=== PATIENT | male | born 1995 | race Caucasian/White ===

== ENCOUNTER 2025-02-14 07:47 | Outpatient (AMB) | payer BC, SELFPAY ==
--- OUTSIDE RECORDS SUMMARY | 2025-02-14 07:50 | XMS_ITS | Clinical Summary ---
Author Organization [facility] Address [address] [place] [phone] Phone Care Team Providers Care Vocational Rehabilitation Specialist Name Role Phone Maury Mendoza MD Primary Care Provider [phone] Allergies No known active allergies Medications No known medications Active Problems Problem Noted Date Diagnosed Date Elevated blood pressure reading 04/20/2019 Overview (04/20/2019): - BP 140/80 x 2 measurements in office - Father and 25 yo brother with diagnosed hypertension - Patient admittedly nervous during visit Assessment & Plan (04/20/2019 3:13 PM EDT): Parag agrees to get an outside BP done and follow up with [facility] if abnormal Immunizations Immunization Administration Dates Next Due DTaP 06/01/2001, 8,1996,06/15,1996 Hep B, ped/adol 1996,1996,1996 Hib (HbOC) 07/06/1997, 7,1996,04/21 IPV 06/01/2001 Influenza, injectable, quadr ivalent, preservative free 04/20/2019 Influenza, intranasal, trivalent 06/03/2010,09/2008 MMR 06/01/2001,07/06/1997 Meningococcal Conj (Menactra) MCV4P 03/13/2015,1 OPV 1996,1996 Tdap 04/20/2019,04/04/2009 Varicella 05/07/2009,02/26/1999 Family History Medical History Relation Name Comments Hypertension Brother Hypertension Father Relation Name Status Comments Brother Father Social History Tobacco Use Types Packs/Day Years Used Date Smoking Tobacco: Never Comments:never smoker Hunger/Food Answer Date Recorded No 04/27/2020 Stable Housing Answer Date Recorded No 04/27/2020 Transportation Concerns Answer Date Rec orded No 04/27/2020 Hazards in Home Answer Date Recorded No 06/15/2020 Financing Utilities Answer Date Recorde d No 06/15/2020 Safety at Home Answer Date Recorded No 06/15/2020 Outside Support Answer Date Recorded No 06/15/2020 Understanding Health Concerns Answer Da te Recorded No 06/15/2020 Financing Health Concerns Answer Date R ecorded No 06/15/2020 Missing School or Work Answer Date Sunny rded No 06/15/2020 Sex and Gender Information Value Date Recorded Sex Assigned at Not on file Legal Sex Male 12:13 AM EST Gender Identity Not on file Sexual Orientation Not on file Last Filed Vital Signs Vital Sign Reading Time Taken Comments Blood Pressure 140/80 04/20/2019 2:17 PM EDT Pulse 72 04/20/2019 2:17 PM EDT Temperature 37 C (98.6 F) 11/25/2017 1:29 PM EDT Respiratory Rate 18 11/25/2017 1:29 PM EDT Oxygen Saturation 98% 11/25/2017 1:29 PM EDT Inhaled Oxygen Concentration - - Weight 76.4 kg (168 lb 6.4 oz) 04/20/2019 2:17 P M EDT Height 172.7 cm (5' 8 ) 04/20/2019 2:17 PM EDT Body Mass Index 25.61 04/20/2019 2:17 PM EDT Plan of Treatment Health Maintenance Due Date Last Done Comments COVID-19 Vaccine (1 - season) 2024 Influenza Vaccines (#1) 2025 04/20/20 19, 06/03/2010, 04/04/2009 DTaP,Tdap,and Td Vaccines (8 - Td or Tdap) 04/20/2029 04/20/2019, 04/04/2009, 06/01/2001, Additional history exists Hepatitis B Vaccines Completed 1996, 1996, 1996 HIB Vaccines Completed 07/06/1997, 09/03, 1996, Additional history exists IPV Vaccines Completed 06/01/2001, 06/02, 1996 MMR Vaccines Completed 06/01/2001, 07/06/1997 Varicella Vaccines Completed 05/07/2009, 02/26/1999 Meningococcal Vaccine Aged Out 03/13/2015, 009 No longer eligible based on patient's age to complete this topic HPV Vaccines Aged Out No longer eligi ble based on patient's age to complete this topic Hepatitis A Vaccines Aged Out No long er eligible based on patient's age to complete this topic Men B Vaccine Aged Out No longer elig ible based on patient's age to complete this topic Pneumococcal Vaccine Aged Out No long er eligible based on patient's age to complete this topic Insurance [facility] PPO Care Teams Vocational Rehabilitation Specialist Relationship Specialty Start Date End Date Maury Mendoza MD [address] [place] [id number] PCP - General 09/23/16
--- NOTE | 2025-02-14 07:57 | MHC.PC.OV ---
Vital Signs 02/14/25 08:01 Height 5 ft 9 in Weight 179 lb BMI 26.4 BP 156/82 H Blood Pressure Location Lt brachial Position Sitting Pulse 83 Pulse Source Pulse Oximeter Pulse Oximetry (%) 98 Oxygen Delivery Method Room Air Intake Visit Reasons: establish care Intake Note: Patient here to establish care Manager Warehouse Required: No Accompanied by: Self / Same As Patient Allergies No Known Allergies Allergy (Verified 02/14/25 08:06) Medication List - Last Reconciled 02/14/25 by Jaleesa Santillan PA-C No Known Home Meds Tobacco use date assessed: 02/14/25 Dental Screening Dental Screen Date: 02/14/25 Did you have a dental visit in the last 12 months?: Yes Did you have a dental problem in the last 6 months where you did not have access to dental care?: No Was dental information given to patient?: Patient has dentist HPI establish care HPI Details 30-year-old male coming to the office for the 1st time. Presenting with concerns of borderline hypertension and anxiety. The patient has a significant family history of hypertension, with both his father and brother affected and both diagnosed prior to 30 years old. He has been monitoring his blood pressure at home, with readings indicating pre-hypertension but does not have specific values. He maintains a healthy lifestyle, including dietary modifications and regular exercise. The patient experiences increased anxiety due to job-related stress and commuting issues. He is exploring therapy and medication options to manage his anxiety. vaccinations: Tdap 2019 [facility] Surgical History No pertinent past surgical history Family History Mother Glaucoma Father Hypertension Brother Hypertension Maternal Uncle Colon cancer Maternal Grandmother Throat cancer Maternal Uncle Heart attack Social History Housing: Other ([facility]) Alcohol intake: current Alcohol intake frequency: a few times a week Alcohol type: beer Patient Tobacco Use Status: Never used Tobacco Tobacco use type: Cigar e-Cigarette/Vaping Use: Never Used Second Hand Smoke Exposure: No service: No Current occupational status: employed Current occupation: [employer] Current occupational exposures/hazards: No Cognitive needs: No Hearing needs: No Vision needs: No Questionnaire PHQ-9 Over the last 2 weeks, how often have you been bothered by any of the following problems? 1. Little interest or pleasure in doing things: not at all 2. Feeling down, depressed, or hopeless: not at all 3. Trouble falling or staying asleep, or sleeping too much: not at all 4. Feeling tired or having little energy: several days 5. Poor appetite or overeating: not at all 6. Feeling bad about yourself - or that you are a failure or have let yourself or your family down: not at all 7. Trouble concentrating on things, such as reading the newspaper or watching television: not at all 8. Moving or speaking so slowly that other people could have noticed. Or the opposite - being so fidgety or restless that you have been moving around a lot more than usual: not at all 9. Thoughts that you would be better off or of hurting yourself in some way: not at all Total score: 1 Depression Screening Interpretation: Negative Depression Screening Done: Yes 96921 - PHQ-9 Billing: Yes Source: Developed by Drs. Maury Hughes, Angela Esposito, Yasmany Agudelo and colleagues, with an educational boo from [employer]. Thrive Questionnaire Date Thrive assessed: 02/14/25 I am a: Patient What is your living situation today?: I have a steady place to live Within the past 12 months, did the food you bought not last and you didn't have the money to get more?: Never true Within the past 12 months, did you worry whether your food would run out before you got money to buy more?: Never true Do you have trouble paying for medicines?: No Do you have trouble getting transportation to medical appointments?: No Do you have trouble paying your heating and electricity bill?: No Do you have trouble taking care of your child, family member or friend?: No Do you have trouble with day-to-day activities such as bathing, preparing meals, shopping, managing finances, etc.?: No Are you currently unemployed and looking for a job?: No Are you interested in more education?: No Please select the resources that you would like help with: None Currently or been in a relationship where the following occur: No concerns reported THRIVE Score: 0 AUDIT C Alcohol Use Questionnaire (AUDIT-C) 1. How often do you have a drink containing alcohol?: 2-3 times a week 2. How many drinks containing alcohol do you have on a typical day when you are drinking?: 1 or 2 3. How often do you have six or more drinks on one occasion?: Never Total Score: 3 Score Reviewed/Action Taken: Yes BRUCE-7 AMB Questionnaire BRUCE-7 Date BRUCE - 7 assessed: 02/14/25 Feeling nervous, anxious, or on edge: 1 = Several days Not being able to stop or control worryin = Not at all Worrying too much about different things: 1 = Several days Trouble relaxin = Several days Being so restless that it is hard to sit still: 0 = Not at all Becoming easily annoyed or irritable: 1 = Several days Feeling afraid as if something awful might happen: 0 = Not at all Total BRUCE-7 score (0-4 normal; 5-9 mild; 10-14 moderate; 15-21 severe): 4 Source: Developed by Drs. Maury Hughes, Angela Esposito, Yasmany Agudelo and colleagues, with an educational boo from [employer]. BRUCE-7 Assessment Billing BRUCE-7 Assessment Tool: BRUCE-7 Assessment 58618 Review of Systems Const Denies body aches, Denies chills, Denies fever(s), Denies headache(s) and Denies poor appetite Eyes Reports no additional complaints ENT Denies dysphagia, Denies dizziness, Denies headache(s) and Denies odynophagia Card Denies chest pain, Denies syncope, Denies edema, Denies irregular heart rhythm, Denies lightheadedness and Denies dyspnea Resp Denies cough and Denies dyspnea GI Denies abdominal pain, Denies constipation, Denies dysphagia, Denies diarrhea, Denies nausea, Denies odynophagia and Denies vomiting Reports no additional complaints Musc Reports no additional complaints and Denies abnormal gait Skin/Breast Reports system reviewed and no additional complaints, except as documented Neuro Denies abnormal gait, Denies dizziness, Denies syncope and Denies headache(s) Psych Reports no additional complaints Physical exam (Primary Care) Vital Signs: Last Vital Signs Pulse 83 02/14/25 08:01 BP 156/82 H 02/14/25 08:01 Pulse Ox 98 02/14/25 08:01 Oxygen Delivery Method Room Air 02/14/25 08:01 BMI result Body Mass Index 26.4 Tobacco/Smoking Status: Tobacco use Status Tobacco use date assessed 02/14/25 02/14/25 08:06 Patient Tobacco Use Status Never used Tobacco 02/14/25 08:19 Tobacco use type Cigar 02/14/25 08:06 e-Cigarette/Vaping Use Never Used 02/14/25 08:06 PHQ-9: PHQ-9 Score PHQ-9: Total score 1 02/14/25 08:07 Depression Screening Interpretation: Negative Thrive Assessment: Date of Thrive Assessment Date Thrive assessed 02/14/25 02/14/25 08:06 Currently or been in a relationship where the following occur: No concerns reported Const General: cooperative, healthy appearing, comfortable and no acute distress Orientation/consciousness: patient oriented x3 HENMT Head: Yes normocephalic Ears: hearing grossly normal bilaterally General nose exam: Normal external nose present Face and sinus: Yes normal facial exam and Yes sinuses nontender Mouth: Normal oral and palatal mucosa present and tongue normal Throat: Yes posterior oropharynx normal Eyes General: appearance normal, both eyes and all related structures Conjunctivae: conjunctivae normal Pupils: Equal, round and reactive pupils present EOM: EOMs intact bilaterally and No Nystagmus present Neck Neck: Yes full ROM and Yes no lymphadenopathy Chest Chest palpation & inspection: normal inspection of the chest Resp Effort & Inspection: normal respiratory effort Auscultation: clear to auscultation bilaterally, no crackles, no rales, no rhonchi and no wheezes Cardio Rate: regular rate Rhythm: regular rhythm Peripheral pulses: radial pulses present and dorsalis pedis present GI Inspection: Yes normal to inspection and No Abdominal wall edema Palpation (GI): Soft to palpation, not firm and nontender Auscultation: normal bowel sounds Rectal Exam - Male: Yes deferred General: Yes no CVA tenderness Back/Spine/Pelvis Back: no CVA tenderness Skin General skin exam: no rashes or lesions noted Neuro General: patient oriented x3 Cranial nerves: Yes Equal, round and reactive pupils present, Yes Midline tongue present, Yes Ability to bilaterally elevate shoulders present and No Nystagmus present Gait exam (Neuro): Normal gait present Extrem General: Yes normal to inspection, Yes full ROM and No edema Psych Speech and movement: Normal speech and movement present Affect: normal affect Attitude: cooperative Insight: Good insight present (Psych) Judgement: Good judgement present (Psych) Coding Level of Care Code Est Pt Prev Care 18-39y(49705) Diagnoses Annual physical exam Z00.00 Borderline hypertension R03.0 Anxiety F41.9 Additional Codes BRUCE-7 Assessment Billing - BRUCE-7 Assessment Tool: BRUCE-7 Assessment 21507 ([id number]) PHQ-9 - 75537 - PHQ-9 Billing: Yes ([id number]) Assessment & Plan Assessment & Plan (1) Annual physical exam: Code(s): Z00.00 - Encounter for general adult medical examination without abnormal findings Category: Medical Plan: Patient is up to date on all recommended routine screenings and vaccinations for his age. I did order for updated blood work including cholesterol screening. Healthy diet and regular exercise is encouraged. (2) Borderline hypertension: Code(s): R03.0 - Elevated blood-pressure reading, without diagnosis of hypertension Category: Medical Plan: Patient has a strong family history of hypertension with two first degree relatives being diagnosed prior to the age of 30. He has been told by previous providers his BP is elevated and blood pressure readings at home are elevated as well. At this time given strong family history and elevated home readings we discussed starting a daily medication vs continued monitoring. Patient would like to try an oral medication given this has been going on for some time. Plan to initiate Lisinopril 5mg daily and advised patient to continue to monitor BP reading 3-4x per week at home and follow up in 2 months with log of pressures. Discussed with patient if he begins to have lightheadedness, dizziness or BP lower than 110/60 to reach out to the office. Plan to obtain blood work to monitor for kidney function as well. (3) Anxiety: Code(s): F41.9 - Anxiety disorder, unspecified Category: Medical Plan: Patient having intermittent anxiety primarily related to recent occupational stress that typically occurs at nighttime. He would like to try an as needed medication rather than a daily maintenance medication for anxiety treatment. Plan to trial Hydroxyzine as needed for sleep/anxiety and follow up in 2 months. Referral was placed to counseling as well. Plan The management plan for borderline hypertension involves starting lisinopril at 5 mg daily, with a follow-up scheduled in two months to evaluate blood pressure control and adjust the medication if necessary. The patient is instructed to monitor blood pressure at home, recording readings several times a week, and to adhere to a low-sodium diet to support blood pressure management. Cholesterol screening is advised due to the family history of hypertension and heart disease, with fasting blood work to be completed at the patient's convenience. For anxiety, hydroxyzine is prescribed at 25 mg to be taken as needed, especially at night when anxiety symptoms are more prevalent. The patient is encouraged to consider therapy as an additional treatment option, with a referral for counseling provided. The patient is also advised to maintain regular physical activity and to explore stress-reduction techniques to help manage anxiety. This note was constructed using voice recognition software. While every effort has been made to ensure accuracy and applications manager, still areas may have been included sometimes these areas may affect the content or meeting of the given symptoms. Total time spent caring for the patient today was 30 minutes. This includes time spent before the visit reviewing the chart, time spent during the visit, and time spent after the visit and documentation. Patient was informed and verbally consented to the use of an ambient scribe for clinic note documentation during this visit. Orders: Orders Comprehensive Met. Panel Today R03.0 - Elevated blood-pressure reading, without diagnosis of hypertension, Z00.00 - Encounter for general adult medical examination without abnormal findings Complete Blood Count Auto Diff Today R03.0 - Elevated blood-pressure reading, without diagnosis of hypertension, Z00.00 - Encounter for general adult medical examination without abnormal findings Free T4 (Free Thyroxine) Today F41.9 - Anxiety disorder, unspecified, Z00.00 - Encounter for general adult medical examination without abnormal findings Lipid Panel Today Z13.220 - Encounter for screening for lipoid disorders Vitamin B12 and Folate Today Z13.21 - Encounter for screening for nutritional disorder Vitamin D 25-OH Total Today Z13.21 - Encounter for screening for nutritional disorder TSH reflex Free T4 Today F41.9 - Anxiety disorder, unspecified, Z00.00 - Encounter for general adult medical examination without abnormal findings Referrals Counseling Referral F41.9 - Anxiety disorder, unspecified Medications: New hydroxyzine HCl 25 mg PO BEDTIME 30 tabs 0RF lisinopril 5 mg PO DAILY 90 tabs 0RF
[2025-02-14 08:01] VITALS: BP 156/82; PULSE 83; O2SAT 98; BMI 26.4
== END 2025-02-14 08:52 | disposition home or self-care (01) ==
LOC: HO.HMCH 07:48
DX: Z00.00 Encounter for general adult medical examination without abnormal findings (principal); R03.0 Elevated blood-pressure reading, without diagnosis of hypertension; F41.9 Anxiety disorder, unspecified

== ENCOUNTER → 2025-02-14 07:47 | Outpatient (BNVA) | payer BC, SELFPAY | DX: Z00.00 Encounter for general adult medical examination without abnormal findings (principal); R03.0 Elevated blood-pressure reading, without diagnosis of hypertension; F41.9 Anxiety disorder, unspecified; I10 Essential (primary) hypertension | CPT/HCPCS: 96127 ==

== ENCOUNTER 2025-02-20 07:50 | Outpatient (REF) | payer BC, SELFPAY ==
--- OUTSIDE RECORDS SUMMARY | 2025-02-20 07:54 | XMS_ITS | Clinical Summary ---
Author Organization [facility] Address [address] [place] [id number] Phone Care Team Providers Care Nut And Bolt Assembler Name Role Phone Maury Mendoza MD Primary Care Provider [phone] Allergies No known active allergies Medications No [...] patient's age to complete this topic Insurance [facility] PPO Care Teams Nut And Bolt Assembler Relationship Specialty Start Date End Date Maury Mendoza MD [address] [place] [id number] PCP - General 09/23/16
--- OUTSIDE RECORDS SUMMARY | 2025-02-20 07:54 | XMS_ITS | Clinical Summary ---
Author Organization [facility] Address [address] [facility] [address] [place] [phone] Phone Care Team Providers Care Pastry Supervisor Name Role Phone Maury Mendoza MD Primary Care Provider Allergies No known active allergies Medications No known medications Social History Tobacco Use Types Packs/Day Years Used Date Smoking Tobacco: Never Assessed Education Answer Date Recorded Are you interested in more education? Not on eri e 11/27/2022 Are you concerned about learning? Not on file 11/27/2022 No 11/27/2022 No 11/27/2022 Digital Access Answer Date Recorded No 12/28/2022 No 12/28/2022 No 12/28/2022 Reliable internet access at home? Not on file 12/28/2022 Device with a working camera? Not on file Sex and Gender Information Value Date Recorded Sex Assigned at Not on file Legal Sex Male 2:28 AM EDT Gender Identity Not on file Sexual Orientation Not on file Last Filed Vital Signs Vital Sign Reading Time Taken Comments Blood Pressure 119/56 03/20/2017 5:07 AM EDT Pulse 86 03/20/2017 5:07 AM EDT Temperature 36.9 C (98.4 F) 03/20/2017 5:07 AM EDT Respiratory Rate 18 03/20/2017 5:07 AM EDT Oxygen Saturation 98% 03/20/2017 2:35 AM EDT Inhaled Oxygen Concentration - - Weight 81.6 kg (180 lb) 03/20/2017 2:37 AM EDT Height 177.8 cm (5' 10 ) 03/20/2017 2:37 AM EDT Body Mass Index 25.83 03/20/2017 2:37 AM EDT Plan of Treatment Health Maintenance Due Date Last Done Comments DEPRESSION SCREENING 2008 SMOKING Hx and SMOKELESS TOB ACCO SCREENING 01/29/2009 HEPATITIS C SCREENING 01/29/2014 HIV ONE-TIME SCREENING (18-6 5 YEARS) 01/29/2014 COVID-19 VACCINE (2 - 2023-2 5 season) 2024 10/31/2020 Adult Td,Tdap Booster 04/20/2029 04/20/2019 HEPATITIS A VACCINES Aged Out No long er eligible based on patient's age to complete this topic HIB VACCINES Aged Out No longer eligi ble based on patient's age to complete this topic MENINGOCOCCAL VACCINES (ACWY) Aged Out No longer eligible based on patient's age to complete this topic MENINGOCOCCAL VACCINES (B) Aged Out N o longer eligible based on patient's age to complete this topic PNEUMOCOCCAL VACCINES (0-49 years) Aged Out No longer eligible based on patient's age to complete this topic Medical Devices Not on file [facility] Care Teams Pastry Supervisor Relationship Specialty Start Date End Date Maury Mendoza MD [address] [place] [id number] PCP - General Pediatrics 03/20/17 Additional Source Comments The information contained in this document represents components of the legal health record. It is not the complete legal health record.[facility]
[2025-02-20 08:13] LABS: MANUAL DIFF FLAG NO
[2025-02-20 08:50] LABS: Hematocrit 45.3 % (42.0-52.0); Hemoglobin 15.9 g/dl (14.0-18.0); Imm Gran Abs Auto 0.01 X10*3/uL (0.00-0.03); Imm Gran Pct Auto 0.2 % (0.0-0.4); Lymphocytes Absolute Auto 1.9 X10*3/uL (1.2-4.9); Mean Corpuscular HGB Conc 35.1 g/dl (31.0-36.0); Mean Corpuscular Hemoglobin 31.0 pg (27.0-33.0); Mean Corpuscular Volume 88.3 fL (80.0-98.0); NRBC Abs Auto 0.000 X10*3/uL (0.0-0.012); NRBC Pct Auto 0.0 /100WBC (0.0-0.2); Platelet Count 235 X10*3/uL (160-400); Red Blood Count 5.13 X10*6/uL (4.60-5.80); White Blood Count 5.5 X10*3/uL (4.8-10.8)
[2025-02-20 09:22] LABS: Alanine Aminotransferase 27 U/L (0-40); Albumin Level 4.8 g/dL (3.5-5.0); Alkaline Phosphatase 42 U/L (39-117); Anion Gap 10 (12-20); Aspartate Amino Transferase 26 U/L (5-37); Blood Urea Nitrogen 12 mg/dL (9-16); Calcium 9.1 mg/dL (8.4-10.2); Carbon Dioxide 28 mmol/L (22-29); Chloride 106 mmol/L (96-108); Cholesterol 195 mg/dL (<200); Estimated Glomerular Filt Rate > 60; HDL Cholesterol 55 mg/dL (>40); Potassium 4.4 mmol/L (3.3-5.1); Sodium 140 mmol/L (135-145); Total Protein 7.4 g/dL (6.5-8.0); Triglycerides 125 mg/dL (<150)
[2025-02-20 09:39] LABS: Free T4 (Free Thyroxine) 1.06 ng/dL (0.71-1.85)
[2025-02-20 09:48] LABS: Folate 14.0 ng/mL (> or = 4.0); Vitamin B12 334 pg/mL (200-900)
== END 2025-02-20 07:51 | disposition home or self-care (01) ==
LOC: HO.LAB 07:50
DX: Z00.00 Encounter for general adult medical examination without abnormal findings (principal); R03.0 Elevated blood-pressure reading, without diagnosis of hypertension; F41.9 Anxiety disorder, unspecified; Z13.21 Encounter for screening for nutritional disorder; Z13.220 Encounter for screening for lipoid disorders
CPT/HCPCS: 36415; 80053; 80061; 82306; 82607; 82746; 84439; 84443; 85025